=== PATIENT | female | born 1955 | race Hispanic/Latino ===

== ENCOUNTER 2019-06-02 02:46 | Inpatient (IN) | payer OTHER ==
[2019-06-02] MEDS ORDERED: DEXTROSE 50% IN WATER (25GM) 50 ML SYRINGE IV ONE ×2 (03:00→05:29)
--- NOTE | 2019-06-02 03:08 | Emergency Department Report ---
ED Altered Mental Status HPI - General Stated Complaint: HYPOGLYCEMIA Time Seen by Provider: 06/02/19 03:00 Source: patient, EMS - History of Present Illness Initial Comments: Patient is 63 years old female with history of diabetes, insulin-dependent. Patient brought to the emergency room via EMS for evaluation of altered mental status and decreased responsiveness. EMS stated that patient ines called stating that he found the patient on the floor not responding. EMS found that patient blood glucose is 15. EMS unable to obtain IV access. Patient did not receive any medication prior to coming to the ER. Upon arrival to the ER patient is obtunded. IV access immediately obtained and patient given dextrose 50 mL, patient immediately started waking up. In moving all extremities. Patient is alert oriented 3 and in no acute distress. She now is able to give more information. Patient stated that she is taking Levemir 15 units twice a day. Patient stated that she went to bed last night with no complaint. She denied any chest pain, shortness of breath, abdominal pain, nausea or vomiting. Patient stated that her only medical problem is diabetes. MD Complaint: altered mental status, decreased responsiveness -: unknown Severity: severe Context: diabetes Associated Symptoms: denies other symptoms ED Review of Systems ROS: Stated complaint: HYPOGLYCEMIA Other details as noted in HPI Comment: All other systems reviewed and negative Constitutional: denies: chills, fever Respiratory: denies: cough, shortness of breath, SOB with exertion, wheezing Cardiovascular: denies: chest pain, palpitations Gastrointestinal: denies: abdominal pain, nausea, vomiting Musculoskeletal: denies: back pain Neurological: denies: headache, weakness ED Physical Exam - General General appearance: obtunded - Head Head exam: Present: atraumatic, normocephalic, normal inspection - ENT ENT exam: Present: normal exam, normal orophraynx, mucous membranes moist - Neck Neck exam: Present: normal inspection, full ROM. Absent: tenderness, meningismus, lymphadenopathy, thyromegaly - Respiratory Respiratory exam: Present: normal lung sounds bilaterally - Cardiovascular Cardiovascular Exam: Present: regular rate, normal rhythm, normal heart sounds - GI/Abdominal GI/Abdominal exam: Present: soft, normal bowel sounds. Absent: distended, tenderness, guarding, rebound, rigid, organomegaly, mass, bruit, pulsatile mass, hernia - Extremities Exam Extremities exam: Present: normal inspection, full ROM, normal capillary refill. Absent: pedal edema, calf tenderness - Back Exam Back exam: Present: normal inspection, full ROM. Absent: CVA tenderness (R), CVA tenderness (L) - Neurological Exam Neurological exam: Present: altered - Psychiatric Psychiatric exam: Present: normal mood - Skin Skin exam: Present: warm, intact, normal color ED Course Vital Signs 06/02/19 06/02/19 06/02/19 02:59 03:29 04:22 Temperature 93.2 F L Pulse Rate 77 78 Respiratory 21 14 14 Rate Blood Pressure 142/77 134/42 [Left] O2 Sat by Pulse 100 98 Oximetry - Lab Data Result diagrams: 06/02/19 03:06 06/02/19 03:06 Lab Results 06/02/19 06/02/19 06/02/19 Range/Units 03:06 03:06 03:06 WBC 5.1 (4.5-11.0) K/mm3 RBC 4.17 (3.65-5.03) M/mm3 Hgb 12.9 (10.1-14.3) gm/dl Hct 38.7 (30.3-42.9) % MCV 93 (79-97) fl MCH 31 (28-32) pg MCHC 33 (30-34) % RDW 14.5 (13.2-15.2) % Plt Count 174 (140-440) K/mm3 Lymph % (Auto) 35.1 H (13.4-35.0) % [place] % (Auto) 8.9 H (0.0-7.3) % Eos % (Auto) 1.4 (0.0-4.3) % Baso % (Auto) 0.3 (0.0-1.8) % Lymph # 1.8 (1.2-5.4) K/mm3 [place] # 0.4 (0.0-0.8) K/mm3 Eos # 0.1 (0.0-0.4) K/mm3 Baso # 0.0 (0.0-0.1) K/mm3 Seg Neutrophils % 54.3 (40.0-70.0) % Seg Neutrophils # 2.7 (1.8-7.7) K/mm3 Sodium 146 H (137-145) mmol/L Potassium 2.8 L* (3.6-5.0) mmol/L Chloride 107.6 H (98-107) mmol/L Carbon Dioxide 24 (22-30) mmol/L Anion Gap 17 mmol/L BUN 9 (7-17) mg/dL Creatinine 0.3 L (0.7-1.2) mg/dL Estimated GFR > 60 ml/min BUN/Creatinine Ratio 30 % Glucose 19 L* (65-100) mg/dL POC Glucose (70-105) Lactic Acid 1.00 (0.7-2.0) mmol/L Calcium 9.4 (8.4-10.2) mg/dL Total Bilirubin 0.80 (0.1-1.2) mg/dL Direct Bilirubin > 0.2 H (0-0.2) mg/dL Indirect Bilirubin 0.6 mg/dL AST 56 H (5-40) units/L ALT 73 H (7-56) units/L Alkaline Phosphatase 120 (35-129) units/L Troponin T < 0.010 (0.00-0.029) ng/mL Total Protein 6.4 (6.3-8.2) g/dL Albumin 3.6 L (3.9-5) g/dL Albumin/Globulin Ratio 1.3 % // Range/Units 03:15 WBC (4.5-11.0) K/mm3 RBC (3.65-5.03) M/mm3 Hgb (10.1-14.3) gm/dl Hct (30.3-42.9) % MCV (79-97) fl MCH (28-32) pg MCHC (30-34) % RDW (13.2-15.2) % Plt Count (140-440) K/mm3 Lymph % (Auto) (13.4-35.0) % [place] % (Auto) (0.0-7.3) % Eos % (Auto) (0.0-4.3) % Baso % (Auto) (0.0-1.8) % Lymph # (1.2-5.4) K/mm3 [place] # (0.0-0.8) K/mm3 Eos # (0.0-0.4) K/mm3 Baso # (0.0-0.1) K/mm3 Seg Neutrophils % (40.0-70.0) % Seg Neutrophils # (1.8-7.7) K/mm3 Sodium (137-145) mmol/L Potassium (3.6-5.0) mmol/L Chloride (98-107) mmol/L Carbon Dioxide (22-30) mmol/L Anion Gap mmol/L BUN (7-17) mg/dL Creatinine (0.7-1.2) mg/dL Estimated GFR ml/min BUN/Creatinine Ratio % Glucose (65-100) mg/dL POC Glucose 106 H (70-105) Lactic Acid (0.7-2.0) mmol/L Calcium (8.4-10.2) mg/dL Total Bilirubin (0.1-1.2) mg/dL Direct Bilirubin (0-0.2) mg/dL Indirect Bilirubin mg/dL AST (5-40) units/L ALT (7-56) units/L Alkaline Phosphatase (35-129) units/L Troponin T (0.00-0.029) ng/mL Total Protein (6.3-8.2) g/dL Albumin (3.9-5) g/dL Albumin/Globulin Ratio % - EKG Data -: EKG Interpreted by Me - Radiology Data Radiology results: report reviewed - Medical Decision Making Patient is 63 years old female with history of diabetes, insulin-dependent. Patient brought to the emergency room via EMS for evaluation of altered mental status and decreased responsiveness. EMS stated that patient fianc called stating that he found the patient on the floor not responding. EMS found that patient blood glucose is 15. EMS unable to obtain IV access. Patient did not r eceive any medication prior to coming to the ER. Upon arrival to the ER patient is obtunded. IV access immediately obtained and patient given dextrose 50 mL, patient immediately started waking up. In moving all extremities. Patient is alert oriented 3 and in no acute distress. She now is able to give more information. Patient stated that she is taking Levemir 15 units twice a day. Patient stated that she went to bed last night with no complaint. She denied any chest pain, shortness of breath, abdominal pain, nausea or vomiting. Patient stated that her only medical problem is diabetes. Patient examined by me multiple times. Patient is alert, oriented 3 in no acute distress. Repeated blood glucose is more than 100. Labs reviewed and is unremarkable except for previously low blood glucose of 19 and a potassium of 2.8. Potassium replaced with 20 milliequivalent of potassium chloride. I discussed the patient with Dr. Sarah Carolina, she agreed to admit the patient to medical service for further management. Critical Care Time: Yes Critical care time in (mins) excluding proc time.: 30 Critical care attestation.: If time is entered above; I have spent that time in minutes in the direct care of this critically ill patient, excluding procedure time. ED Disposition Clinical Impression: Hypoglycemia, Altered mental status, Acute hypokalemia Disposition: OP ADMIT IP TO THIS HOSP Is pt being admited?: Yes Condition: Stable Referrals: PRIMARY CARE, [Primary Care Provider] - 3-5 Days
[2019-06-02 03:23] LABS: Basophils % (Auto) 0.3 % (0.0-1.8); Eosinophils # (Auto) 0.1 K/mm3 (0.0-0.4); Eosinophils % (Auto) 1.4 % (0.0-4.3); Hematocrit 38.7 % (30.3-42.9); Hemoglobin 12.9 gm/dl (10.1-14.3); Lymphocytes # (Auto) 1.8 K/mm3 (1.2-5.4); Lymphocytes % (Auto) 35.1 % (13.4-35.0); Mean Corpuscular HGB Conc 33 % (30-34); Mean Corpuscular Volume 93 fl (79-97); Monocytes # (Auto) 0.4 K/mm3 (0.0-0.8); Monocytes % (Auto) 8.9 % (0.0-7.3); Platelet Count 174 K/mm3 (140-440); Red Blood Count 4.17 M/mm3 (3.65-5.03); Red Cell Distribution Width 14.5 % (13.2-15.2)
[2019-06-02] MEDS: DEXTROSE 10% IN WATER 1,000 ML IV SCH ×2 (03:25→15:59)
--- NOTE | 2019-06-02 03:30 | XRay Report ---
CHEST 1 VIEW INDICATION / CLINICAL INFORMATION: Altered Mental Status. COMPARISON: 03/13/2011 FINDINGS: SUPPORT DEVICES: None. HEART / MEDIASTINUM: No significant abnormality. LUNGS / PLEURA: No significant pulmonary or pleural abnormality. No pneumothorax. ADDITIONAL FINDINGS: There appear to be fractures through the right humeral head of uncertain age. IMPRESSION: 1. No significant change Signer Name: Travon Rebollar MD Signed: 06/02/2019 3:25 AM Workstation Name: [id number]
[2019-06-02 03:50] LABS: Alanine Aminotransferase 73 units/L (7-56); Albumin 3.6 g/dL (3.9-5); BUN/Creatinine Ratio 30; Blood Urea Nitrogen 9 mg/dL (7-17); Calcium 9.4 mg/dL (8.4-10.2); Hemolysis Index 35
--- NOTE | 2019-06-02 03:56 | Cat Scan Report ---
Head CT without intravenous contrast INDICATION: Altered mental status COMPARISON: None FINDINGS: The ventricles are normal in size and position. No hemorrhage or extra-axial fluid collecti on. No edema or mass effect. No focal infarct seen. Portions of the sinuses visualized are clear. No skull fracture identified. IMPRESSION: Negative head CT Automated exposure control was utilized to diminish radiation dose Signer Name: Travon Rebollar MD Signed: 06/02/2019 3:52 AM Workstation Name: [id number]
[2019-06-02 03:58] LABS: Bilirubin,Direct > 0.2 mg/dL (0-0.2)
[2019-06-02] MEDS ORDERED: POTASSIUM CHLORIDE ER 20 MEQ TAB PO ONE ×3 (04:00→15:00)
[2019-06-02] MEDS ORDERED: ONDANSETRON 4 MG/2 ML INJ IV PRN (04:40)
[2019-06-02] MEDS ORDERED: ACETAMINOPHEN 325 MG TAB PO PRN (04:40)
[2019-06-02] MEDS ORDERED: POTASSIUM CHLORIDE 10 MEQ 10 MEQ/100 ML BAG IV SCH (05:00)
[2019-06-02] MEDS ORDERED: POTASSIUM CHLORIDE 10 MEQ 10 MEQ/100 ML BAG IV ONE (05:02)
--- NOTE | 2019-06-02 05:08 | History and Physical Report ---
<JI STEPHENSON - Last Filed: 06/02/19 05:04> History of Present Illness Date of examination: 06/02/19 Date of admission: 06/02/19 Chief complaint: AMS, hypoglycemia History of present illness: 63-year-old female with history of mild mental retardation and insulin-dependent diabetes who presents to [facility] ED via EMS complaints of hypoglycemia and altered mental status. Patient's brother and [id number] are present at bedside and they have assisted with-history. Per EMS report patient's fiance called EMS stated that patient was found on the floor and she is unresponsive. Upon EMS arrival patient had blood glucose of 15. Patient is a hard stated and EMS was unable to obtain IV access prior to arrival. Patient arrived to our facility obtunded. Upon arrival to our facility IVF axis was obtained and patient was given D50, and was responsive. She was started on D10 IVF. Pt mentation improved. She is no awake, alert, oriented 3. Patient states that she was in her usual state of health last night prior to going to bed. She recall the events that transferred. It only remembers waking up here at our facility. Patient [id number] stated that patient was recently admitted on 05/29 to [facility] ICU for DKA. Patient was also admitted to [facility] ICU back in February for DKA. Pt's clinical courier is Dr.M. Heard located in [facility], and her PCP is at [facility]. Pt denies non-co mpliance with insulin therapy, changes in diet, n/v, chest pain, or headache. Past History Past Medical History: diabetes (insulin-dependent), other (mild mental retardation) Past Surgical History: No surgical history Social history: lives with family. denies: smoking, alcohol abuse Family history: no significant family history Medications and Allergies Allergies Allergy/AdvReac Type Severity Reaction Status Date / Time No Known Allergies Allergy Unverified 06/02/19 04:55 Active Meds: Active Medications Acetaminophen (Tylenol) 650 mg PO Q4H PRN PRN Reason: Pain MILD(1-3)/Fever >100.5/[place] Docusate Sodium (Colace) 100 mg PO BID TERESA Heparin Sodium (Porcine) (Heparin) 5,000 unit SUB-Q Q12HR TERESA Dextrose (D10w) 1,000 mls @ 150 mls/hr IV DIRECT TERESA Last Admin: 06/02/19 03:25 Dose: 150 mls/hr Documented by: Potassium Chloride (Kcl 10meq/100ml) 10 meq in 100 mls @ 100 mls/hr IV ONCE ONE Stop: 06/02/19 06:01 Ondansetron HCl (Zofran) 4 mg IV Q8H PRN PRN Reason: Nausea And Vomiting Sodium Chloride (Sodium Chloride Flush Syringe 10 Ml) 10 ml IV BID TERESA Sodium Chloride (Sodium Chloride Flush Syringe 10 Ml) 10 ml IV PRN PRN PRN Reason: LINE FLUSH Review of Systems ROS unobtainable: due to mental status Exam - Physical Exam Narrative exam: Physical exam General appearance: Present: No acute distress, alert and oriented 3, well- developed, pleasant, adult female - EENT Eyes: Present: PERRL, EOM intact ENT: hearing intact, normal dentition - Neck Neck: Present: supple, normal ROM - Respiratory Respiratory effort: Non-labored Respiratory: Clear throughout - Cardiovascular Heart rate: 78(bpm) Rhythm: Sinus rhythm Heart Sounds: Present: S1 & S2. Absent: rub, click - Extremities Extremities: no ischemia, pulses intact, - Peripheral Assessment Peripheral Pulses: within normal limits - Abdominal General gastrointestinal: soft, non-tender, normal bowel sounds - Integumentary Integumentary: Present: warm, dry - Musculoskeletal Musculoskeletal: Able to move all extremities -Neurological Neurological: CN II-XII intact - Psychiatric Psychiatric: Appropriate for situation ,cooperative - Constitutional Vitals: Temp Pulse Resp BP Pulse Ox 93.2 F L 78 14 134/42 98 06/02/19 02:59 06/02/19 04:22 06/02/19 04:22 06/02/19 04:22 06/02/19 04:22 Results - Labs CBC & Chem 7: 06/02/19 03:06 06/02/19 03:06 Labs: Laboratory Last Values WBC 5.1 K/mm3 (4.5-11.0) 06/02/19 03:06 RBC 4.17 M/mm3 (3.65-5.03) 06/02/19 03:06 Hgb 12.9 gm/dl (10.1-14.3) 06/02/19 03:06 Hct 38.7 % (30.3-42.9) 06/02/19 03:06 MCV 93 fl (79-97) 06/02/19 03:06 MCH 31 pg (28-32) 06/02/19 03:06 MCHC 33 % (30-34) 06/02/19 03:06 RDW 14.5 % (13.2-15.2) 06/02/19 03:06 Plt Count 174 K/mm3 (140-440) 06/02/19 03:06 Lymph % (Auto) 35.1 % (13.4-35.0) H 06/02/19 03:06 [place] % (Auto) 8.9 % (0.0-7.3) H 06/02/19 03:06 Eos % (Auto) 1.4 % (0.0-4.3) 06/02/19 03:06 Baso % (Auto) 0.3 % (0.0-1.8) 06/02/19 03:06 Lymph # 1.8 K/mm3 (1.2-5.4) 06/02/19 03:06 [place] # 0.4 K/mm3 (0.0-0.8) 06/02/19 03:06 Eos # 0.1 K/mm3 (0.0-0.4) 06/02/19 03:06 Baso # 0.0 K/mm3 (0.0-0.1) 06/02/19 03:06 Seg Neutrophils % 54.3 % (40.0-70.0) 06/02/19 03:06 Seg Neutrophils # 2.7 K/mm3 (1.8-7.7) 06/02/19 03:06 Sodium 146 mmol/L (137-145) H 06/02/19 03:06 Potassium 2.8 mmol/L (3.6-5.0) L* 06/02/19 03:06 Chloride 107.6 mmol/L (98-107) H 06/02/19 03:06 Carbon Dioxide 24 mmol/L (22-30) 06/02/19 03:06 Anion Gap 17 mmol/L 06/02/19 03:06 BUN 9 mg/dL (7-17) 06/02/19 03:06 Creatinine 0.3 mg/dL (0.7-1.2) L 06/02/19 03:06 Estimated GFR > 60 ml/min 06/02/19 03:06 BUN/Creatinine Ratio 30 % 06/02/19 03:06 Glucose 19 mg/dL (65-100) L* 06/02/19 03:06 POC Glucose 157 (70-105) H 06/02/19 04:58 Hemoglobin A1c 10.1 % (4-6) H 06/02/19 04:45 Lactic Acid 1.00 mmol/L (0.7-2.0) 06/02/19 03:06 Calcium 9.4 mg/dL (8.4-10.2) 06/02/19 03:06 Total Bilirubin 0.80 mg/dL (0.1-1.2) 06/02/19 03:06 Direct Bilirubin > 0.2 mg/dL (0-0.2) H 06/02/19 03:06 Indirect Bilirubin 0.6 mg/dL 06/02/19 03:06 AST 56 units/L (5-40) H 06/02/19 03:06 ALT 73 units/L (7-56) H 06/02/19 03:06 Alkaline Phosphatase 120 units/L (35-129) 06/02/19 03:06 Troponin T < 0.010 ng/mL (0.00-0.029) 06/02/19 03:06 Total Protein 6.4 g/dL (6.3-8.2) 06/02/19 03:06 Albumin 3.6 g/dL (3.9-5) L 06/02/19 03:06 Albumin/Globulin Ratio 1.3 % 06/02/19 03:06 - Imaging and Cardiology Imaging and Cardiology: CXR: FINDINGS: SUPPORT DEVICES: None. HEART / MEDIASTINUM: No significant abnormality. LUNGS / PLEURA: No significant pulmonary or pleural abnormality. No pneumothorax. ADDITIONAL FINDINGS: There appear to be fractures through the right humeral head of uncertain age. IMPRESSION: 1. No significant change CT Head: FINDINGS: The ventricles are normal in size and position. No hemorrhage or ext ra-axial fluid collection. No edema or mass effect. No focal infarct seen. Portions of the sinuses visualized are clear. No skull fracture identified. IMPRESSION: Negative head CT Assessment and Plan Assessment and plan: 63-year-old female with history of mild mental retardation and insulin-dependent diabetes who presents to [facility] ED via EMS complaints of hypoglycemia and altered mental status. Hypoglycemia -BG on admission 19 -Hx IDDM -On D10 IVF -POC BG monitoring -On hypoglycemic protocol Hypokalemia -Potassium on admission 2.8 -Receiving potassium replacement -Repeat potassium labs at 11am -Continue to monitor replete prn Acute encephalopathy -?? secondary to hypoglycemia -CT head negative -Afebrile, no leukocytosis -Neuro checks SIRS -Hypothermic rectal Temp 93.2 -AMS -UA pending -No gross psychosis -CXR negative -Continue supportive care DVT PPX -On Heparin Advance Directives: No VTE prophylaxis?: Chemical Plan of care discussed with patient/family: Yes <FREDDIE MAIER - Last Filed: 06/02/19 06:20> History of Present Illness Date of admission: 06/02/19 04:40 Medications and Allergies Active Meds: Active Medications Acetaminophen (Tylenol) 650 mg PO Q4H PRN PRN Reason: Pain MILD(1-3)/Fever >100.5/[place] Docusate Sodium (Colace) 100 mg PO BID TERESA Heparin Sodium (Porcine) (Heparin) 5,000 unit SUB-Q Q12HR TERESA Dextrose (D10w) 1,000 mls @ 150 mls/hr IV DIRECT TERESA Last Admin: 06/02/19 03:25 Dose: 150 mls/hr Documented by: Ondansetron HCl (Zofran) 4 mg IV Q8H PRN PRN Reason: Nausea And Vomiting Sodium Chloride (Sodium Chloride Flush Syringe 10 Ml) 10 ml IV BID TERESA Sodium Chloride (Sodium Chloride Flush Syringe 10 Ml) 10 ml IV PRN PRN PRN Reason: LINE FLUSH Exam - Constitutional Vitals: Temp Pulse Resp BP Pulse Ox 97.8 F 76 14 126/57 98 06/02/19 05:25 06/02/19 05:25 06/02/19 05:25 06/02/19 05:25 06/02/19 05:25 Results - Labs CBC & Chem 7: 06/02/19 03:06 06/02/19 03:06 Labs: Laboratory Last Values WBC 5.1 K/mm3 (4.5-11.0) 06/02/19 03:06 RBC 4.17 M/mm3 (3.65-5.03) 06/02/19 03:06 Hgb 12.9 gm/dl (10.1-14.3) 06/02/19 03:06 Hct 38.7 % (30.3-42.9) 06/02/19 03:06 MCV 93 fl (79-97) 06/02/19 03:06 MCH 31 pg (28-32) 06/02/19 03:06 MCHC 33 % (30-34) 06/02/19 03:06 RDW 14.5 % (13.2-15.2) 06/02/19 03:06 Plt Count 174 K/mm3 (140-440) 06/02/19 03:06 Lymph % (Auto) 35.1 % (13.4-35.0) H 06/02/19 03:06 [place] % (Auto) 8.9 % (0.0-7.3) H 06/02/19 03:06 Eos % (Auto) 1.4 % (0.0-4.3) 06/02/19 03:06 Baso % (Auto) 0.3 % (0.0-1.8) 06/02/19 03:06 Lymph # 1.8 K/mm3 (1.2-5.4) 06/02/19 03:06 [place] # 0.4 K/mm3 (0.0-0.8) 06/02/19 03:06 Eos # 0.1 K/mm3 (0.0-0.4) 06/02/19 03:06 Baso # 0.0 K/mm3 (0.0-0.1) 06/02/19 03:06 Seg Neutrophils % 54.3 % (40.0-70.0) 06/02/19 03:06 Seg Neutrophils # 2.7 K/mm3 (1.8-7.7) 06/02/19 03:06 Sodium 146 mmol/L (137-145) H 06/02/19 03:06 Potassium 2.8 mmol/L (3.6-5.0) L* 06/02/19 03:06 Chloride 107.6 mmol/L (98-107) H 06/02/19 03:06 Carbon Dioxide 24 mmol/L (22-30) 06/02/19 03:06 Anion Gap 17 mmol/L 06/02/19 03:06 BUN 9 mg/dL (7-17) 06/02/19 03:06 Creatinine 0.3 mg/dL (0.7-1.2) L 06/02/19 03:06 Estimated GFR > 60 ml/min 06/02/19 03:06 BUN/Creatinine Ratio 30 % 06/02/19 03:06 Glucose 19 mg/dL (65-100) L* 06/02/19 03:06 POC Glucose 157 (70-105) H 06/02/19 04:58 Hemoglobin A1c 10.1 % (4-6) H 06/02/19 04:45 Lactic Acid 1.00 mmol/L (0.7-2.0) 06/02/19 03:06 Calcium 9.4 mg/dL (8.4-10.2) 06/02/19 03:06 Total Bilirubin 0.80 mg/dL (0.1-1.2) 06/02/19 03:06 Direct Bilirubin > 0.2 mg/dL (0-0.2) H 06/02/19 03:06 Indirect Bilirubin 0.6 mg/dL 06/02/19 03:06 AST 56 units/L (5-40) H 06/02/19 03:06 ALT 73 units/L (7-56) H 06/02/19 03:06 Alkaline Phosphatase 120 units/L (35-129) 06/02/19 03:06 Troponin T < 0.010 ng/mL (0.00-0.029) 06/02/19 03:06 Total Protein 6.4 g/dL (6.3-8.2) 06/02/19 03:06 Albumin 3.6 g/dL (3.9-5) L 06/02/19 03:06 Albumin/Globulin Ratio 1.3 % 06/02/19 03:06 Assessment and Plan Assessment and plan: She has seen and examined, discussed with nurse practitioner, agree with the above. Right humeral fracture of uncertain age, patient using arm without any problems, continue to monitor
[2019-06-02 07:05] LABS: Bacteria,Urine 1+ /HPF (Negative); Bilirubin,Urine NEG (Negative); Blood,Urine NEG (Negative); Color,Urine Colorless (Yellow); Mucus,Urine FEW /HPF; Protein,Urine <15 mg/dL mg/dL (Negative); Urobilinogen,Urine < 2.0 mg/dL (<2.0)
[2019-06-02] MEDS: DOCUSATE SODIUM 100 MG CAP PO SCH ×2 (09:25→21:26)
[2019-06-02] MEDS: HEPARIN 5,000 UNIT/1 ML VIAL SUB-Q SCH ×2 (09:26→21:27)
[2019-06-02 14:16] LABS: BUN/Creatinine Ratio 13; Blood Urea Nitrogen 5 mg/dL (7-17); Calcium 8.9 mg/dL (8.4-10.2); Hemolysis Index 14
--- NOTE | 2019-06-02 14:33 | Event Note ---
Date: 06/02/19 Patient with hypoglycemia. Put on Regular diet for now.
[2019-06-03 05:53] LABS: Basophils % (Auto) 0.4 % (0.0-1.8); Eosinophils # (Auto) 0.1 K/mm3 (0.0-0.4); Eosinophils % (Auto) 2.4 % (0.0-4.3); Hematocrit 36.3 % (30.3-42.9); Hemoglobin 12.2 gm/dl (10.1-14.3); Lymphocytes # (Auto) 1.5 K/mm3 (1.2-5.4); Lymphocytes % (Auto) 27.3 % (13.4-35.0); Mean Corpuscular HGB Conc 34 % (30-34); Mean Corpuscular Volume 93 fl (79-97); Monocytes # (Auto) 0.4 K/mm3 (0.0-0.8); Monocytes % (Auto) 6.3 % (0.0-7.3); Platelet Count 161 K/mm3 (140-440); Red Blood Count 3.92 M/mm3 (3.65-5.03); Red Cell Distribution Width 14.5 % (13.2-15.2)
[2019-06-03 06:22] LABS: BUN/Creatinine Ratio 20; Blood Urea Nitrogen 8 mg/dL (7-17); Calcium 8.7 mg/dL (8.4-10.2); Hemolysis Index 7
[2019-06-03 07:27] VITALS: BP 144/59
[2019-06-03] MEDS ORDERED: DEXTROSE 50% IN WATER (25GM) 50 ML SYRINGE IV PRN (08:27)
[2019-06-03] MEDS: INSULIN LISPRO 100 UNIT/ML SUB-Q SCH ×2 (08:34→12:46)
[2019-06-03] MEDS: DOCUSATE SODIUM 100 MG CAP PO SCH (09:23)
[2019-06-03] MEDS: HEPARIN 5,000 UNIT/1 ML VIAL SUB-Q SCH (09:24)
--- NOTE | 2019-06-03 12:44 | Discharge Summary ---
Providers - Providers Date of Admission: 06/02/19 04:40 Date of discharge: 06/03/19 Attending physician: EDWARDO RUFFIN Primary care physician: JESSICA CHIN MD Hospitalization Condition: Fair Hospital course: 63-year-old female with history of mild mental retardation and insulin-dependent diabetes who presents to [facility] ED via EMS complaints of hypoglycemia and altered mental status. Patient's brother and [id number] are present at bedside and they have assisted with-history. Per EMS report patient's fiance called EMS stated that patient was found on the floor and she is unresponsive. Upon EMS arrival patient had blood glucose of 15. Patient arrived to our facility obtunded. Upon arrival to our facility IVF accesss was obtained and patient was given D50, and was responsive. She was started on D10 IVF and admitted Hypoglycemia. -BG on admission 19 Now resolved after Dextrose iv Hypokalemia, replaced Acute metabolic encephalopathy, due to hypoglycemia. Resolved after glucose normalized. SIRS. No evidence of sepsis Disposition: DC-01 TO HOME OR SELFCARE - Discharge Diagnoses (1) Acute metabolic encephalopathy Status: Acute (2) Acute hypokalemia Status: Acute (3) Hypoglycemia Status: Acute Core Measure Documentation - Palliative Care Palliative Care/ Comfort Measures: Not Applicable - Core Measures Any of the following diagnoses?: none Exam - Constitutional Vitals: Temp Pulse Resp BP Pulse Ox 97.9 F 90 18 144/59 94 06/03/19 07:26 06/03/19 08:00 06/03/19 07:26 06/03/19 07:26 06/03/19 07:26 Plan Activity: no restrictions Diet: low fat, low cholesterol, low salt, diabetic Plan of Treatment: 1.Follow up with PCP in 1 week Follow up with: PRIMARY MD GIUSEPPE [Primary Care Provider] - 3-5 Days
[2019-06-03] MEDS ORDERED: INSULIN NPH/REGULAR 70/30 INJ SUB-Q SCH (17:00)
== END 2019-06-03 15:10 | disposition home or self-care (01) | DRG 638 ==
LOC: ED 02:46 → 4A 04:40
PROVIDERS: ADMIT Internal Medicine; ATTEND Internal Medicine
DX: E11.649 Type 2 diabetes mellitus with hypoglycemia without coma (principal); G93.40 Encephalopathy, unspecified; R65.10 Systemic inflammatory response syndrome (SIRS) of non-infectious origin without acute organ dysfunction; E87.6 Hypokalemia; Z79.4 Long term (current) use of insulin
CPT/HCPCS: 36415; 70450; 71045; 80048; 80076; 81001; 82140; 82962; 83036; 84484; 85025; 93005; 93010; G0378; J1644; J1815; J3480